=== PATIENT | female | born 1940 | race Caucasian/White ===

== ENCOUNTER 2018-07-12 00:07 | Inpatient (IN) | payer MEDICARE ==
[2018-07-12] MEDS ORDERED: Ondansetron PF 4 MG/2 ML Vial ONE (00:53)
[2018-07-12 01:51] LABS: Hemoglobin 10.4 g/dL (12.0-16.0); Mean Corpuscular HGB CONC 32.4 g/dL (32.0-36.0); Mean Corpuscular Hemoglobin 30.1 pg (27.0-31.0); Mean Corpuscular Volume 92.8 fL (78.0-98.0); Mean Platelet Volume 7.9 fL (7.4-10.4); Platelet Count 167 thou/uL (130-400); RBC Distribution Width 13.9 % (11.5-14.5); Red Blood Cell (RBC) Count 3.46 mill/uL (4.20-5.40)
[2018-07-12 01:57] LABS: Albumin 3.4 g/dL (3.4-4.8); Alkaline Phosphatase 80 U/L (40-150); Anion Gap 14 mmol/L (10-20); BUN (Urea Nitrogen) 24 mg/dL (9.8-20.1); Bilirubin, Total 0.9 mg/dL (0.2-1.2); Calc. Creatinine Clearance 0 mL/min (70-130); Calcium 8.4 mg/dL (7.8-10.44); Carbon Dioxide 22 mmol/L (23-31); Chloride 102 mmol/L (98-107); Estimated GFR-MDRD 41; Globulin 2.1 g/dL (2.4-3.5); Glucose 114 mg/dL (83-110); Potassium 3.8 mmol/L (3.5-5.1); Protein, Total 5.5 g/dL (6.0-8.3); Sodium 134 mmol/L (136-145)
[2018-07-12 01:58] LABS: ALT (SGPT) 34 U/L (8-55); AST (SGOT) 41 U/L (5-34); CK (CPK) 322 U/L (29-168)
[2018-07-12 02:14] LABS: Band 37 % (5-11); Eosinophils 1 % (0-10); Lymphocytes 11 % (21-51); MDiff Complete? YES; Metamyelocyte 4 % (0-0); Monocytes 3 % (0-10); Myelocyte 2 % (0-0); Neutrophil 42 % (42-75)
[2018-07-12 02:15] LABS: Bilirubin Negative (Negative); Blood, Urine Negative (Negative); Clarity CLOUDY (Clear); Glucose, Urine (Dipstick) Negative (Negative); Leukocyte Negative (Negative); Nitrite Negative (Negative); Protein, Urine (Dipstick) Trace mg/dL (Neg-Trace); Specific Gravity, Urine 1.011 (1.002-1.036); Urobilinogen 0.2 mg/dL (0.2-1.0)
[2018-07-12] MEDS ORDERED: Azithromycin 500 MG VIAL ONE (02:53)
[2018-07-12] MEDS ORDERED: cefTRIAXone\\ROCEPHIN 2 GM VIAL ONE (02:53)
[2018-07-12] MEDS ORDERED: Dextrose 5 % And 0.9 % NaCl 1,000 ML IV SCH (03:00)
--- NOTE | 2018-07-12 07:38 | RAD ---
Portable frontal chest radiograph: 07/12/2018 COMPARISON: None HISTORY: Pain FINDINGS: Lungs are clear. Heart and mediastinal contours appear within normal limits. IMPRESSION: No acute findings.
--- NOTE | 2018-07-12 07:51 | CT ---
PRELIMINARY REPORT/[facility]/EMERGENCY AFTER HOURS PROCEDURE: EXAM: CT Angiography Chest With Contrast EXAM DATE/TIME: 07/12/2018 2:23 AM CLINICAL HISTORY: 77 years old, female; Signs and symptoms; Shortness of breath; Patient HX: Er 1. Noprevious in pacs. . F77 presents to ED for multiple complaints. PT reports she has a bad back and reports she has been getting spasms down both legs. PT reports HX of similar spasms but reports these are worse. PT also reports she has been feeling off balance and reports falling off the bed yesterday. PT reports some nausea and reports vomiting last night and this morning. PT denies diarrhea and denies any urinary symptoms. Pt's family reports the leg spasms and balance issues have been occurring since PT got her pneumonia shot yesterday TECHNIQUE: Imaging protocol: Axial computed tomographic angiography images of the chest with intravenous contras t using CT angiography protocol. Coronal and sagittal reformatted images were created and reviewed. 3D rendering: MIP reconstructed images were created and reviewed. COMPARISON: No relevant prior studies available. FINDINGS: Pulmonary arteries: Adequate contrast enhancement of the pulmonary arteries. Aorta: No evidence of thoracic aortic dissection. Chronic atherosclerotic calcification of the vascul ature. Lungs: No evidence endobronchial lesion. Mild-moderate bilateral lower lobe air space opacitysuspect consolidation/pneumonia. Pleural space: No evidence of pneumothorax. Heart: Heart appears within normal limits, no pericardial effusion. No evidence of filling defects in the cardiac chambers. Mediastinum: Mild increased bilateral hilar soft tissue density. Few subcentimeter mediastinal lymph nodes. Sutures involving gastroesophageal junction. Lymph nodes: See Mediastinum Finding. Bones/joints: Musculoskeletal structures appear intact. Multi-level degenerative changes involve the thoracic spine. Soft tissues: Unremarkable. IMPRESSION: 1. No evidence of pulmonary embolism. 2. No evidence of thoracic aortic dissection. 3. Mild-moderate bilateral lower lobe air space opacity- suspect consolidation/pneumonia. 4. Minimal-mild mediastinal and perihilar lymphadenopathy. Thank you for allowing us to participate in the care of your patient. Dictated and Authenticated by: Anjel Baldwin MD 07/12/2018 3:30 AM Central Time ([place] & [place]) FINAL REPORT EMERGENCY AFTER HOURS CT ANGIOGRAM CHEST WITH 3D RENDERING: Date: 07/12/18 Time: 0226 hours FINDINGS/IMPRESSION: No convincing CT evidence for acute pulmonary embolism. No evidence for aortic aneurysm. Fairly exten sive bilateral lower lobe air space opacity disease with concern for pneumonia. Mild mediastinal and hilar lymphadenopathy, nonspecific. Report in agreement with preliminary report given on-call by [facility]. POS: ANDERSON
[2018-07-12 11:26] VITALS: BMI 28.0
[2018-07-12] MEDS ORDERED: ISOVUE-370 76%-LOCM 1 ML ONE (14:36)
[2018-07-12] MEDS ORDERED: Guaifenesin DM 100-10/5 ML UDCUP PO PRN (14:59)
[2018-07-12] MEDS ORDERED: Ondansetron PF 4 MG/2 ML Vial IVP PRN (14:59)
[2018-07-12] MEDS ORDERED: Benzonatate 100 MG CAP PO PRN (14:59)
[2018-07-12] MEDS ORDERED: hydrALAZINE 20 MG/ML VIAL SLOW IVP PRN (14:59)
[2018-07-12] MEDS ORDERED: Ondansetron ODT 4 MG TAB PO PRN (14:59)
[2018-07-12] MEDS: Pregabalin 75 MG CAP PO SCH ×2 (15:40→20:35)
[2018-07-12] MEDS: Sodium Chloride 0.9% 1,000 ML IV SCH (15:42)
[2018-07-12] MEDS: tiZANidine HCl 4 MG TAB PO SCH (20:37)
[2018-07-12] MEDS ORDERED: Famotidine 20 MG TAB PO SCH (21:00)
--- NOTE | 2018-07-12 21:46 | HP ---
PRIMARY CARE PROVIDER: Dr. Alex Sims. CHIEF COMPLAINT: Cough and shortness of breath. HISTORY OF PRESENT ILLNESS: This is a 77-year-old female, who presents to [facility] Emergency Department, complaining of increased back pain, shortness of breath, general malaise, and "feeling off balance." The patient apparently slid off the edge of her bed, but did not lose consciousness or sustain any type of head injury. The patient admits to nausea with episodes of emesis in the last 24 hours. The patient denied any change to her bowel habits or urinary complaints. The patient denied any specific change to her chronic medication regimen and states she has been compliant. The patient does admit to history of fibromyalgia, taking several muscle relaxants and Celebrex. The patient admits to dry cough with associated back pain. The patient denied any documented home fever or family members with similar symptoms. The patient denies any recent travel or sick contacts. The patient admits to secondhand smoke exposure by her on a limited basis. The patient does state she recently received pneumonia vaccination within the last 48 hours prior to this admission. The patient states her influenza vaccination is current as of this season. In the emergency room, the patient underwent general evaluation including chest imaging and CT angiogram of the chest showing infiltrates bilaterally concerning for early pneumonia. The patient received Zithromax and Rocephin intravenously as well as Zofran and normal saline. PAST MEDICAL HISTORY: 1. Fibromyalgia. 2. Chronic back pain. 3. Depression. PAST SURGICAL HISTORY: 1. Status post back surgery with fusion x7. 2. Status post appendectomy. 3. Status post gastric bypass. CURRENT MEDICATIONS: 1. Bupropion XL 300 mg p.o. daily. 2. Celebrex 200 mg p.o. daily. 3. Pepcid 40 mg p.o. daily. 4. Levothyroxine 50 mcg p.o. daily. 5. Lyrica 150 mg p.o. t.i.d. 6. Sertraline 100 mg p.o. q.i.d.. 7. Tizanidine 4 mg p.o. at bedtime. ALLERGIES: NO KNOWN DRUG ALLERGIES. FAMILY HISTORY: No inheritable disease per patient report. SOCIAL HISTORY: The patient is . Resides in [place], [place]. Originally from [place]. No current alcohol, tobacco, or illicit drug use. REVIEW OF SYSTEMS: CONSTITUTIONAL: Negative for weight loss or gain, ability to conduct usual activities. SKIN: Negative for rash, itching. EYES: Negative for double vision, pain. ENT/MOUTH: Negative for nose bleeding, neck stiffness, pain, tenderness. CARDIOVASCULAR: Negative for palpitations, dyspnea on exertion, orthopnea. RESPIRATORY: Negative for shortness of breath, wheezing, cough, hemoptysis, fever or night sweats. GASTROINTESTINAL: Negative for poor appetite, abdominal pain, heartburn, nausea, vomiting, constipation, or diarrhea. GENITOURINARY: Negative for urgency, frequency, dysuria, nocturia. MUSCULOSKELETAL: Negative for pain, swelling. NEUROLOGIC/PSYCHIATRIC: Negative for anxiety, depression. ALLERGY/IMMUNOLOGIC: Negative for skin rash, bleeding tendency. Otherwise negative except as stated per HPI. PHYSICAL EXAMINATION: VITAL SIGNS: On admission, blood pressure 93/41, pulse 66, respiratory rate 18, temperature 98 degrees Fahrenheit, and O2 saturation 88% on room air. GENERAL APPEARANCE: This is a 77-year-old female, alert and oriented x3, pleasant, conversant, in no acute distress. HEENT: Pupils are equal, round, and reactive to light and accommodation. Extraocular muscles are intact. No scleral icterus. No conjunctival injection. Nares are patent. OP is clear. Teeth in fair repair. NECK: Supple. No cervical adenopathy. No thyromegaly. No carotid bruits. No JVD appreciated. SPINE: Cervical spine full active and passive range of motion. No meningeal signs noted. CHEST: Diminished breath sounds in the bases bilaterally. No wheezing or rhonchi noted. CARDIOVASCULAR: S1 and S2 without noted murmur, rub, or gallop. ABDOMEN: Rounded, soft, nontender, and nondistended. Bowel sounds are positive in all 4 quadrants. There is no hepatosplenomegaly. No abdominal bruits. No rebound or guarding appreciated. EXTREMITIES: Warm and dry with fair turgor. No clubbing, cyanosis, or asymmetric edema appreciated. Pulses palpable distally at the dorsalis pedis, posterior tibial, and popliteal arteries bilaterally. Capillary refill less than 2 seconds. NEUROLOGIC: Cranial nerves 2 through 12 are grossly intact. No focal or lateralizing signs appreciated. PERTINENT LAB AND X-RAY FINDINGS: Sodium 134, potassium 3.8, chloride 102, CO2 of 22, BUN 24, creatinine 1.26, estimated GFR 41, glucose 114, lactic acid level 2.0, calcium 8.4, AST 41, ALT of 34, alkaline phosphatase 80, total CK 322. BNP 158. CBC showed a white blood cell count 11.0, hemoglobin 10.4, hematocrit 32.1, and platelet count 167 with 42% neutrophils and 37% bands. D-dimer 2.72. Urinalysis negative. Portable chest x-ray dated 07/12/2018, showed no acute cardiopulmonary process. CT angiogram of the chest dated 07/12/2018, showed no evidence for pulmonary embolus. No evidence of dissection. Bilateral lower lobe airspace opacity consistent with consolidation/pneumonia. EKG dated 07/12/2018, by my interpretation shows sinus mechanism with heart rates in the 70s. Normal R-wave progression noted in the precordial leads. Normal axis. No acute ST-T wave changes appreciated. ASSESSMENT AND PLAN: 1. Bilateral community-acquired pneumonia, suspected gram-positive cocci. The patient will be admitted to the medical floor. We will continue Rocephin 2 g IV q.24 hours with additional Zithromax 500 mg IV daily. General pulmonary supportive measures. Mucolytics p.r.n. Blood cultures x2 pending. 2. Acute hypoxic respiratory failure. Mild hypoxemia at the time of admission. We will continue oxygen supplementation at 2 L/minute by nasal cannula to maintain O2 saturations greater than or equal to 90%. Continue treatment as outlined in #1. 3. Generalized weakness. Suspect multifactorial and secondary to #1. Walking program evaluation in the a.m. General fall risk precautions. 4. Hypothyroidism. Continue levothyroxine 50 mcg p.o. daily. 5. Chronic back pain. Stable currently. Resume home regimen to include Celebrex, Lyrica, sertraline, and tizanidine. 6. Prophylaxis. SCDs while in bed. Pepcid 20 mg p.o. b.i.d.. CODE STATUS: Full. Surrogate medical decision maker is the patient's spouse. Job ID: [id number]
[2018-07-13] MEDS: cefTRIAXone\\ROCEPHIN 2 GM in Sodium Chloride 0.9% 100 ML IVPB SCH (02:45)
[2018-07-13] MEDS: Azithromycin 500 MG in Sodium Chloride 0.9% 250 ML 250 ML IVPB SCH (04:15)
[2018-07-13] MEDS: Sodium Chloride 0.9% 1,000 ML IV SCH ×2 (04:25→17:12)
[2018-07-13 06:05] LABS: Band 13 % (5-11); Hemoglobin 10.2 g/dL (12.0-16.0); Lymphocytes 18 % (21-51); MDiff Complete? YES; Mean Corpuscular HGB CONC 33.1 g/dL (32.0-36.0); Mean Corpuscular Hemoglobin 30.4 pg (27.0-31.0); Mean Corpuscular Volume 91.8 fL (78.0-98.0); Mean Platelet Volume 8.2 fL (7.4-10.4); Monocytes 6 % (0-10); Neutrophil 63 % (42-75); Platelet Count 164 thou/uL (130-400); RBC Distribution Width 13.8 % (11.5-14.5); Red Blood Cell (RBC) Count 3.34 mill/uL (4.20-5.40); White Blood Cell (WBC) Count 11.2 thou/uL (4.8-10.8)
[2018-07-13 06:15] LABS: Anion Gap 12 mmol/L (10-20); BUN (Urea Nitrogen) 14 mg/dL (9.8-20.1); Calc. Creatinine Clearance 74 mL/min (70-130); Calcium 8.3 mg/dL (7.8-10.44); Carbon Dioxide 20 mmol/L (23-31); Chloride 110 mmol/L (98-107); Estimated GFR-MDRD 69; Glucose 90 mg/dL (83-110); Potassium 3.9 mmol/L (3.5-5.1); Sodium 138 mmol/L (136-145)
[2018-07-13] MEDS: CeleCOXIB 100 MG CAP PO SCH (08:10)
[2018-07-13] MEDS: Pregabalin 75 MG CAP PO SCH ×3 (08:10→19:53)
[2018-07-13] MEDS: Bupropion 150 MG XL TAB PO SCH (08:10)
[2018-07-13] MEDS: Famotidine 20 MG TAB PO SCH (08:12)
[2018-07-13] MEDS: Levothyroxine Sodium 50 MCG TAB PO SCH (08:12)
--- NOTE | 2018-07-13 13:53 | PDOC.PN ---
- Subjective Encounter Start Date: 07/13/18 Encounter Start Time: 13:50 Subjective: f/u for bilat PNA on Rocephin/Zithromax and room air. Feeling better -: overall. Dry cough, no fever. Appetite good. - Objective Resuscitation Status - Order Detail: 07/12/18 14:54 Resuscitation Status Routine Resuscitation Status: FULL: Full Resuscitation MAR Reviewed: Yes Vital Signs & Weight: Vital Signs (12 hours) Temp Pulse Resp BP Pulse Ox 07/13/18 11:27 98.4 F 60 16 101/57 L 97 07/13/18 08:17 98.3 F 76 18 114/69 95 07/13/18 08:00 95 07/13/18 04:46 98.3 F 70 18 125/61 91 L Weight Weight 179 lb 3.773 oz I&O: 07/12/18 07/13/18 07/14/18 06:59 06:59 06:59 Output Total 2 Balance -2 Result Diagrams: 07/13/18 05:11 07/13/18 05:11 Additional Labs: Microbiology 07/12/18 01:26 Venous blood - Right Hand Blood Culture - Preliminary Specimen has been received and culture in progress. No Growth to date. 07/12/18 01:17 Venous blood - Left Arm Blood Culture - Preliminary Specimen has been received and culture in progress. No Growth to date. Laboratory Tests 07/12/18 07/12/18 07/13/18 01:17 01:17 05:11 WBC 11.0 H Hgb 10.4 L Band Neuts % (Manual) 37 H 13 H Sodium 134 L Creatinine 1.26 H Phys Exam - Physical Examination Constitutional: NAD HEENT: PERRLA, sclera anicteric, oral pharynx no lesions Neck: no nodes, no JVD, supple, full ROM Respiratory: no wheezing, no rales, no rhonchi, clear to auscultation bilateral S1, S2 Cardiovascular: RRR, no significant murmur, no rub, gallop Gastrointestinal: soft, non-tender, no distention, positive bowel sounds Musculoskeletal: no edema, pulses present Neurological: normal sensation, moves all 4 limbs Psychiatric: A&O x 3 Skin: normal turgor, cap refill <2 seconds Dx/Plan (1) Bacterial pneumonia Code(s): J15.9 - UNSPECIFIED BACTERIAL PNEUMONIA Status: Acute Comment: Continue Rocephin/Zithromax, initial blood cx negative (2) Acute respiratory failure with hypoxia Code(s): J96.01 - ACUTE RESPIRATORY FAILURE WITH HYPOXIA Status: Acute Comment: Improved, wean off O2 support (3) MALIKA (acute kidney injury) Code(s): N17.9 - ACUTE KIDNEY FAILURE, UNSPECIFIED Status: Acute Comment: Improved with IVF's, avoid nephrotoxic meds and limit contrast exposure, serial monitoring (4) Generalized weakness Code(s): R53.1 - WEAKNESS Status: Acute Comment: Walking program for mobilization and ambulation, likely multifactorial (5) Hypothyroidism Code(s): E03.9 - HYPOTHYROIDISM, UNSPECIFIED Status: Chronic Comment: Continue Levothyroxine 50mcg daily - Plan continue antibiotics, social sciences professor, respiratory therapy, out of bed/ambulate , DVT proph w/SCDs Stable currently -: Continue Rocephin/Zithromax IV another 24h then de-escalate -: Wean off O2 support -: OOB/ambulate -: AM lab: CBC * Likely home in 24h
[2018-07-13] MEDS: tiZANidine HCl 4 MG TAB PO SCH (19:53)
[2018-07-14] MEDS: cefTRIAXone\\ROCEPHIN 2 GM in Sodium Chloride 0.9% 100 ML IVPB SCH (02:22)
[2018-07-14] MEDS: Azithromycin 500 MG in Sodium Chloride 0.9% 250 ML 250 ML IVPB SCH (02:24)
[2018-07-14] MEDS: Levothyroxine Sodium 50 MCG TAB PO SCH (05:25)
[2018-07-14 07:05] LABS: Hemoglobin 10.1 g/dL (12.0-16.0); Mean Corpuscular HGB CONC 33.5 g/dL (32.0-36.0); Mean Corpuscular Hemoglobin 30.6 pg (27.0-31.0); Mean Corpuscular Volume 91.2 fL (78.0-98.0); Mean Platelet Volume 7.7 fL (7.4-10.4); Platelet Count 180 thou/uL (130-400); RBC Distribution Width 13.5 % (11.5-14.5); Red Blood Cell (RBC) Count 3.29 mill/uL (4.20-5.40); White Blood Cell (WBC) Count 10.4 thou/uL (4.8-10.8)
[2018-07-14 08:03] LABS: Band 19 % (5-11); Eosinophils 3 % (0-10); Lymphocytes 9 % (21-51); MDiff Complete? YES; Monocytes 5 % (0-10); Neutrophil 64 % (42-75); Platelet Morphology Comment Appears Adequate; Polychromasia SLIGHT = 2-3 cells (100X) (0-2/hpf)
[2018-07-14] MEDS: Sodium Chloride 0.9% 1,000 ML IV SCH ×2 (08:25→20:51)
[2018-07-14] MEDS: CeleCOXIB 100 MG CAP PO SCH (08:25)
[2018-07-14] MEDS: Pregabalin 75 MG CAP PO SCH ×3 (08:25→20:52)
[2018-07-14] MEDS: Acetaminophen 500 MG TAB PO PRN (08:28)
[2018-07-14] MEDS: Bupropion 150 MG XL TAB PO SCH (08:29)
[2018-07-14] MEDS: Famotidine 20 MG TAB PO SCH (08:30)
--- NOTE | 2018-07-14 16:31 | PDOC.PN ---
- Subjective Encounter Start Date: 07/14/18 Encounter Start Time: 11:45 Subjective: had coughing spells last night, feels better now -: no sob, tolerating oral diet - Objective Resuscitation Status - Order Detail: 07/12/18 14:54 Resuscitation Status Routine Resuscitation Status: FULL: Full Resuscitation MAR Reviewed: Yes Vital Signs & Weight: Vital Signs (12 hours) Temp Pulse Resp BP Pulse Ox 07/14/18 08:00 93 L 07/14/18 07:27 100.1 F H 79 18 110/63 93 L Weight Weight 179 lb 3.773 oz I&O: 07/13/18 07/14/18 07/15/18 06:59 06:59 06:59 Output Total 2 Balance -2 Result Diagrams: 07/14/18 06:39 07/13/18 05:11 Phys Exam - Physical Examination HEENT: PERRLA, moist MMs Neck: no JVD, supple Respiratory: no wheezing, no rales Cardiovascular: RRR, no significant murmur Gastrointestinal: soft, non-tender, positive bowel sounds Musculoskeletal: no edema, pulses present Neurological: non-focal, moves all 4 limbs Dx/Plan (1) Bacterial pneumonia Code(s): J15.9 - UNSPECIFIED BACTERIAL PNEUMONIA Status: Acute Comment: Continue Rocephin/Zithromax, blood cx negative (2) MALIKA (acute kidney injury) Code(s): N17.9 - ACUTE KIDNEY FAILURE, UNSPECIFIED Status: Resolved Comment : Improved with IVF's, avoid nephrotoxic meds and limit contrast exposure, serial monitoring (3) Acute respiratory failure with hypoxia Code(s): J96.01 - ACUTE RESPIRATORY FAILURE WITH HYPOXIA Status: Acute Comment: Improved, wean off O2 support (4) Hypothyroidism Code(s): E03.9 - HYPOTHYROIDISM, UNSPECIFIED Status: Chronic Qualifiers: Hypothyroidism type: unspecified Qualified Code(s): E03.9 - Hypothyroidism , unspecified Comment: Continue Levothyroxine 50mcg daily - Plan hemostable, bandemia has come down to 18% from 37% -: continue antibiotics -: likely dc plan in am if stable -: encourage po intake, mobilize as tolerated -: on wellbutrin xl, lyrica high dose tid, zanaflex * . Review of Systems - Medications/Allergies Allergies/Adverse Reactions: Allergies Allergy/AdvReac Type Severity Reaction Status Date / Time No Known Drug Allergies Allergy Verified 07/12/18 14:41 Medications: Current Medications Acetaminophen (Tylenol) 1,000 mg PO Q6H PRN PRN Reason: Mild Pain (1-3) Last Admin: 07/14/18 08:28 Dose: 1,000 mg Benzonatate (Tessalon) 100 mg PO Q6H PRN PRN Reason: Cough Last Admin: 07/13/18 22:36 Dose: 100 mg Bupropion HCl (Wellbutrin Xl) 300 mg PO DAILY [facility] Last Admin: 07/14/18 08:29 Dose: 300 mg Celecoxib (Celebrex) 200 mg PO DAILY [facility] Last Admin: 07/14/18 08:25 Dose: 200 mg Famotidine (Pepcid) 40 mg PO DAILY [facility] Last Admin: 07/14/18 08:30 Dose: 40 mg Guaifenesin/Dextromethorphan (Robitussin Dm) 15 ml PO Q4H PRN PRN Reason: Cough Hydralazine HCl (Apresoline) 10 mg SLOW IVP Q4H PRN PRN Reason: SBP > 180 and HR < 70 Azithromycin 500 mg/ Sodium (Chloride) 250 mls @ 250 mls/hr IVPB Q24HR@0400 [facility] Last Admin: 07/14/18 02:24 Dose: 250 mls Ceftriaxone Sodium 2 gm/ (Sodium Chloride) 100 mls @ 200 mls/hr IVPB Q24HR@ 0300 [facility] Last Admin: 07/14/18 02:22 Dose: 100 mls Sodium Chloride (Normal Saline 0.9%) 1,000 mls @ 75 mls/hr IV .[id number] [facility] Last Admin: 07/14/18 08:25 Dose: 1,000 mls Levothyroxine Sodium (Synthroid) 50 mcg PO 0600 [facility] Last Admin: 07/14/18 05:25 Dose: 50 mcg Ondansetron HCl (Zofran Odt) 4 mg PO Q6H PRN PRN Reason: Nausea/Vomiting Ondansetron HCl (Zofran) 4 mg IVP Q6H PRN PRN Reason: Nausea/Vomiting Pregabalin (Lyrica) 150 mg PO TID [facility] Last Admin: 07/14/18 14:13 Dose: 150 mg Sertraline HCl (Zoloft) 100 mg PO QID [facility] Tizanidine HCl (Zanaflex) 4 mg PO QPM [facility] Last Admin: 07/13/18 19:53 Dose: 4 mg
[2018-07-14] MEDS: tiZANidine HCl 4 MG TAB PO SCH (20:52)
[2018-07-15] MEDS: cefTRIAXone\\ROCEPHIN 2 GM in Sodium Chloride 0.9% 100 ML IVPB SCH (02:27)
[2018-07-15] MEDS: Azithromycin 500 MG in Sodium Chloride 0.9% 250 ML 250 ML IVPB SCH (04:02)
[2018-07-15] MEDS: Acetaminophen 500 MG TAB PO PRN ×2 (04:14→21:47)
[2018-07-15] MEDS: Levothyroxine Sodium 50 MCG TAB PO SCH (04:14)
[2018-07-15] MEDS: CeleCOXIB 100 MG CAP PO SCH (07:46)
[2018-07-15] MEDS: Bupropion 150 MG XL TAB PO SCH (07:46)
[2018-07-15] MEDS: Famotidine 20 MG TAB PO SCH (07:46)
[2018-07-15] MEDS: Pregabalin 75 MG CAP PO SCH ×3 (07:47→21:47)
[2018-07-15] MEDS: Sodium Chloride 0.9% 1,000 ML IV SCH (07:50)
--- NOTE | 2018-07-15 14:57 | PDOC.PN ---
- Subjective Encounter Start Date: 07/15/18 Encounter Start Time: 07:45 Subjective: breathing better, feels better -: eating well, has ambulated a bit - Objective Resuscitation Status - Order Detail: 07/12/18 14:54 Resuscitation Status Routine Resuscitation Status: FULL: Full Resuscitation MAR Reviewed: Yes Vital Signs & Weight: Vital Signs (12 hours) Temp Pulse Resp BP Pulse Ox 07/15/18 11:00 98 F 66 18 126/68 94 L 07/15/18 07:00 98.2 F 66 17 136/66 94 L Weight Weight 179 lb 3.773 oz Result Diagrams: 07/14/18 06:39 07/13/18 05:11 Phys Exam - Physical Examination HEENT: PERRLA, moist MMs Neck: no JVD, supple Respiratory: no rales, no rhonchi Cardiovascular: RRR, no significant murmur Gastrointestinal: soft, non-tender, positive bowel sounds Musculoskeletal: no edema, pulses present Neurological: non-focal, moves all 4 limbs Psychiatric: normal affect, A&O x 3 Dx/Plan (1) Bacterial pneumonia Code(s): J15.9 - UNSPECIFIED BACTERIAL PNEUMONIA Status: Acute Comment: Continue Rocephin/Zithromax, blood cx negative (2) MALIKA (acute kidney injury) Code(s): N17.9 - ACUTE KIDNEY FAILURE, UNSPECIFIED Status: Resolved Comment : Improved with IVF's, avoid nephrotoxic meds and limit contrast exposure, serial monitoring (3) Acute respiratory failure with hypoxia Code(s): J96.01 - ACUTE RESPIRATORY FAILURE WITH HYPOXIA Status: Acute Comment: Improved, wean off O2 support (4) Hypothyroidism Code(s): E03.9 - HYPOTHYROIDISM, UNSPECIFIED Status: Chronic Qualifiers: Hypothyroidism type: unspecified Qualified Code(s): E03.9 - Hypothyroidism , unspecified Comment: Continue Levothyroxine 50mcg daily - Plan hemostable -: dc plan in am -: continue synthroid, lyrica, welbutrin -: dc iv fluids -: will switch to omnicef on discharge in am x 5 days * . Review of Systems - Medications/Allergies Allergies/Adverse Reactions: Allergies Allergy/AdvReac Type Severity Reaction Status Date / Time No Known Drug Allergies Allergy Verified 07/12/18 14:41 Medications: Current Medications Acetaminophen (Tylenol) 1,000 mg PO Q6H PRN PRN Reason: Mild Pain (1-3) Last Admin: 07/15/18 04:14 Dose: 1,000 mg Benzonatate (Tessalon) 100 mg PO Q6H PRN PRN Reason: Cough Last Admin: 07/13/18 22:36 Dose: 100 mg Bupropion HCl (Wellbutrin Xl) 300 mg PO DAILY [facility] Last Admin: 07/15/18 07:46 Dose: 300 mg Celecoxib (Celebrex) 200 mg PO DAILY [facility] Last Admin: 07/15/18 07:46 Dose: 200 mg Famotidine (Pepcid) 40 mg PO DAILY [facility] Last Admin: 07/15/18 07:46 Dose: 40 mg Guaifenesin/Dextromethorphan (Robitussin Dm) 15 ml PO Q4H PRN PRN Reason: Cough Hydralazine HCl (Apresoline) 10 mg SLOW IVP Q4H PRN PRN Reason: SBP > 180 and HR < 70 Azithromycin 500 mg/ Sodium (Chloride) 250 mls @ 250 mls/hr IVPB Q24HR@0400 [facility] Last Admin: 07/15/18 04:02 Dose: 250 mls Ceftriaxone Sodium 2 gm/ (Sodium Chloride) 100 mls @ 200 mls/hr IVPB Q24HR@ 0300 [facility] Last Admin: 07/15/18 02:27 Dose: 100 mls Sodium Chloride (Normal Saline 0.9%) 1,000 mls @ 75 mls/hr IV .[id number] [facility] Last Admin: 07/15/18 07:50 Dose: Not Given Levothyroxine Sodium (Synthroid) 50 mcg PO 0600 [facility] Last Admin: 07/15/18 04:14 Dose: 50 mcg Ondansetron HCl (Zofran Odt) 4 mg PO Q6H PRN PRN Reason: Nausea/Vomiting Ondansetron HCl (Zofran) 4 mg IVP Q6H PRN PRN Reason: Nausea/Vomiting Pregabalin (Lyrica) 150 mg PO TID [facility] Last Admin: 07/15/18 14:35 Dose: 150 mg Sertraline HCl (Zoloft) 100 mg PO DAILY [facility] Tizanidine HCl (Zanaflex) 4 mg PO QPM [facility] Last Admin: 07/14/18 20:52 Dose: 4 mg
[2018-07-15] MEDS ORDERED: Cepastat Lozenges 1 LOZ PO PRN (20:58)
[2018-07-15] MEDS: tiZANidine HCl 4 MG TAB PO SCH (21:47)
[2018-07-16] MEDS: cefTRIAXone\\ROCEPHIN 2 GM in Sodium Chloride 0.9% 100 ML IVPB SCH (03:25)
[2018-07-16] MEDS: Azithromycin 500 MG in Sodium Chloride 0.9% 250 ML 250 ML IVPB SCH (03:25)
[2018-07-16] MEDS: Sodium Chloride 0.9% 1,000 ML IV SCH (03:29)
[2018-07-16] MEDS: Levothyroxine Sodium 50 MCG TAB PO SCH (04:50)
[2018-07-16] MEDS: Bupropion 150 MG XL TAB PO SCH (08:40)
[2018-07-16] MEDS: CeleCOXIB 100 MG CAP PO SCH (08:40)
[2018-07-16] MEDS: Famotidine 20 MG TAB PO SCH (08:42)
[2018-07-16] MEDS: Pregabalin 75 MG CAP PO SCH (08:42)
[2018-07-16 11:57] VITALS: BP 149/77; TEMP 98.4
--- NOTE | 2018-07-16 12:39 | PDOC.PN ---
- Subjective Encounter Start Date: 07/16/18 Encounter Start Time: 08:15 Subjective: no sob, feels better -: is amb in hallway - Objective Resuscitation Status - Order Detail: 07/12/18 14:54 Resuscitation Status Routine Resuscitation Status: FULL: Full Resuscitation MAR Reviewed: Yes Vital Signs & Weight: Vital Signs (12 hours) Temp Pulse Resp BP BP Pulse Ox 07/16/18 11:56 98.4 F 73 18 149/77 H 94 L 07/16/18 08:42 96 07/16/18 07:42 99.0 F 73 18 146/80 H 96 07/16/18 03:15 98.0 F Weight Weight 179 lb 3.773 oz I&O: 07/15/18 07/16/18 07/17/18 06:59 06:59 06:59 Intake Total 1805 Balance 1805 Result Diagrams: 07/14/18 06:39 07/13/18 05:11 Phys Exam - Physical Examination HEENT: PERRLA, moist MMs Neck: no JVD, supple Respiratory: no wheezing, no rales Cardiovascular: RRR, no significant murmur Gastrointestinal: soft, non-tender, positive bowel sounds Musculoskeletal: no edema, pulses present Neurological: non-focal, moves all 4 limbs Psychiatric: normal affect, A&O x 3 Dx/Plan (1) Bacterial pneumonia Code(s): J15.9 - UNSPECIFIED BACTERIAL PNEUMONIA Status: Acute (2) MALIKA (acute kidney injury) Code(s): N17.9 - ACUTE KIDNEY FAILURE, UNSPECIFIED Status: Resolved Comment : Improved with IVF's, avoid nephrotoxic meds and limit contrast exposure, serial monitoring (3) Acute respiratory failure with hypoxia Code(s): J96.01 - ACUTE RESPIRATORY FAILURE WITH HYPOXIA Status: Resolved (4) Hypothyroidism Code(s): E03.9 - HYPOTHYROIDISM, UNSPECIFIED Status: Chronic Qualifiers: Hypothyroidism type: unspecified Qualified Code(s): E03.9 - Hypothyroidism , unspecified Comment: Continue Levothyroxine 50mcg daily - Plan hemostable -: omnicef for 5 days -: to f/u with PCP in 1 week -: dc pt home * .
--- NOTE | 2018-07-17 15:22 | DIS ---
DATE OF ADMISSION: 07/12/2018 DATE OF DISCHARGE: 07/16/2018 DISCHARGE DISPOSITION: To home. PRIMARY DISCHARGE DIAGNOSES: 1. Pneumonia, resolving. 2. Acute kidney injury, resolved. 3. Acute respiratory failure with hypoxia, resolved. 4. Hypothyroidism. PROCEDURES DONE DURING HOSPITALIZATION: CT angio chest done showed no evidence of PE. There was no dissection in the thoracic aorta. Bilateral lower lobe airspace opacities suspicious for consolidation/pneumonia. Blood cultures x2, no growth. Respiratory virus panel PCR was negative. Discharge white count of 10, H and H of 10 and 30, platelet count 180. BUN and creatinine was 14 and 0.8 on the 2nd. DISCHARGE MEDICATIONS: 1. Omnicef 300 mg p.o. twice daily for another 5 days. 2. Albuterol inhaler q.6 hourly p.r.n. 3. Tizanidine 4 mg p.o. q.p.m. 4. Sertraline 100 mg p.o. daily. 5. Lyrica 150 mg p.o. three times daily. 6. Levothyroxine 50 mcg p.o. daily. 7. Pepcid 40 mg daily. 8. Celecoxib 200 mg daily. 9. Bupropion extended release 300 mg p.o. daily. ALLERGIES: NO KNOWN DRUG ALLERGIES. DISCHARGE PLAN: The patient to follow up with primary care physician in 1 week. BRIEF COURSE DURING HOSPITALIZATION: The patient initially came to ER with complaints of cough and shortness of breath. She had generalized weakness as well. Initial workup revealed bilateral pneumonia. The patient was placed on Rocephin and Zithromax. She was initially needing oxygen on admission, which has been weaned off at the time of discharge. She is ambulating well prior to discharge. The patient is back to her baseline. She has remained hemodynamically stable and will be shortly discharged home. Sin Fine has been advised to continue Omnicef for another 5 days. If the patient were to develop fever or any untoward event, she has been advised to come to the emergency room immediately. Please see a [id number] documentation for the day of discharge on [facility]. Job ID: [id number] [id number]
== END 2018-07-16 12:27 | disposition home or self-care (01) | DRG 193 ==
LOC: ERS 00:07 → ERHOLD 02:53 → T4-A 14:17
PROVIDERS: ADMIT Hospitalist; ATTEND Hospitalist
DX: J15.9 Unspecified bacterial pneumonia (principal); J96.01 Acute respiratory failure with hypoxia; N17.9 Acute kidney failure, unspecified; G89.29 Other chronic pain; M54.9 Dorsalgia, unspecified; E03.9 Hypothyroidism, unspecified; M79.7 Fibromyalgia; F32.9 Major depressive disorder, single episode, unspecified; Z98.1 Arthrodesis status; Z90.49 Acquired absence of other specified parts of digestive tract; Z98.84 Bariatric surgery status; Z79.899 Other long term (current) drug therapy
CPT/HCPCS: 36415; 51701; 71045; 71275; 80048; 80053; 81003; 82550; 83605; 83880; 84484; 85007; 85025; 85027; 85379; 87040; 87633; 93005; 96361; 96365; 96367; 96375; A4353; J0456; J0696; J2405; J3490; J7050; Q9966

== ENCOUNTER 2018-10-24 15:15 | Outpatient (CLI) | payer MEDICARE ==
--- NOTE | 2018-11-21 17:14 | MMO ---
Bilateral MAMMO Bilat Screen [facility]. CLINICAL HISTORY: Patient is 78 years old and is seen for screening. The patient has the following family history of breast cancer: mother, at age 93. The patient has no personal history of cancer. VIEWS: The views performed were: bilateral craniocaudal with tomosynthesis; bilateral mediolateral oblique with tomosynthesis; and cleavage view. MAMMOGRAM FINDINGS: There are scattered fibroglandular densities. There are benign appearing calcifications seen in both breasts. There are no suspicious masses, suspicious calcifications, or new areas of architectural distortion. IMPRESSION: THERE IS NO MAMMOGRAPHIC EVIDENCE OF MALIGNANCY. A ROUTINE FOLLOW-UP MAMMOGRAM IN 1 YEAR IS RECOMMENDED. THE RESULTS OF THIS EXAM WERE SENT TO THE PATIENT. ACR BI-RADS Category 2 - Benign finding MAMMOGRAPHY NOTE: 1. A negative mammogram report should not delay a biopsy if a dominant of clinically suspicious mass is present. 2. Approximately 10% to 15% of breast cancers are not detected by mammography. 3. Adenosis and dense breasts may obscure an underlying neoplasm. Reported by: CONNOR KANG MD Electonically Signed: [id number]
== END 2018-10-24 15:16 | disposition home or self-care (01) ==
LOC: BICMAMMO 15:15
PROVIDERS: ATTEND Physician Assistant
DX: Z12.31 Encounter for screening mammogram for malignant neoplasm of breast (principal); Z80.3 Family history of malignant neoplasm of breast
CPT/HCPCS: 77063; 77067

== ENCOUNTER 2019-10-05 09:09 | Outpatient (CLI) | payer MEDICARE ==
--- NOTE | 2019-10-05 10:29 | MRI ---
MRI LUMBAR SPINE NONCONTRAST: HISTORY: Lumbago. Left-sided sciatica. Low back pain. Numbness and tingling in the left leg. COMPARISON: 03/10/2006. FINDINGS: Stable straightening of lumbar lordosis. Appropriate T1 marrow signal intensity of the lumbar vertebr ae. No fracture. There are type I and type II Modic changes at T12-L1 and L3-L4. Type II Modic changes at L2-L3 and L4-L5. Appropriate signal intensity of the paraspinal muscles and solid organs. Overall AP diameter of the central spinal canal is narrowed secondary to congenitally foreshortened p edicles. There is evidence of clumping as well as peripheral displacement of the nerve root suggesting chronic arachnoiditis. Spondylolisthesis: L1-L2: 5.1 mm of anterolisthesis. L2-L3: 3.1 mm of anterolisthesis. T12-L1:Desiccation with moderate to severe loss of disc space height. Broad-based disc bulge and post erior element hypertrophy result in moderate to severe central canal stenosis. Severe bilateral neural foraminal narrowing. L1-L2:Desiccation with moderate loss of disc space height. Posterior laminectomy defect. Moderate anayeli tral canal stenosis. Moderate bilateral neural foraminal narrowing. L2-L3:Desiccation with moderate loss of disc space height. Posterior laminectomy defect. Broad-based disc bulge. Moderate central canal stenosis. Mild to moderate right and mild left neural foraminal narrowing. L3-L4:Desiccation with mild to moderate loss of disc space height. Broad-based disc bulge with superi or disc extrusion. There is ligamentum flavum thickening and facet hypertrophy. Fluid in both facet joints. Severe central canal stenosis. The degree of central canal stenosis has progressed. L4-L5:Desiccation with moderate loss of disc space height. Broad-based disc bulge abuts the thecal sa c. There is evidence of previous surgical change along the posterior left aspect of the disc, near the subarticular zone. There is a T1 hypointense, T2 hyperintense focus along the right aspect of the central spinal canal, similar to the previous examination. There appear to be traversing left L5 nerve root extending through the T2 hyperintense focus. There is enhancing scar tissue along the medi al and lateral aspect. Lesion may represent a type II spinal meningeal cyst either congenital or iatrogenic in origin. Lesion measures 1.2 x 0.6 cm. There does appear to be some mild mass effect upo n the left aspect of the thecal sac. Overall mild central canal stenosis. Bilaterally, neural foramina are patent. L5-S1:Mild loss of disc space height. Posterior laminectomy defect. Broad-based disc bulge. No signif icant central canal stenosis or significant neural foraminal narrowing. IMPRESSION: 1. Stable narrowing of the central spinal canal due to degenerative change as well as congenitally fo reshortened pedicles. 2. Severe central canal stenosis at L3-L4. 3. Stable postoperative changes. 4. Abnormal T2 hyperintensity along the traversing left L5 with nerve root, at the L4-L5 level. 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 Etiology may be congenital or iatrogenic. Lungs are similar to previous MRI. Consider neurosurgical consultation. 5. Evidence of chronic arachnoiditis. CODE T Transcribed Date/Time: 10/05/2019 10:50 AM
== END 2019-10-05 09:10 | disposition home or self-care (01) ==
LOC: BICMRI 09:09
PROVIDERS: ATTEND Physician Assistant
DX: M54.42 Lumbago with sciatica, left side (principal); G89.29 Other chronic pain; M48.061 Spinal stenosis, lumbar region without neurogenic claudication; G03.1 Chronic meningitis; Z98.890 Other specified postprocedural states
CPT/HCPCS: 72148

== ENCOUNTER 2019-12-17 07:52 | Outpatient (CLI) | payer MEDICARE, OTHER ==
[2019-12-18 15:28] LABS: SARS-CoV-2 MS2 Positive; SARS-CoV-2 N Gene Negative; SARS-CoV-2 S Gene Negative; SARS-CoV-2 by NAA Not Detected (NotDetected); SARS-CoV-2 orf1ab Negative
== END 2019-12-17 07:53 | disposition home or self-care (01) ==
LOC: LABBT 07:52
PROVIDERS: ATTEND Neurological Surgery
DX: M48.061 Spinal stenosis, lumbar region without neurogenic claudication (principal); Z20.828 Contact with and (suspected) exposure to other viral communicable diseases
CPT/HCPCS: 87635; U0003

== ENCOUNTER 2019-12-21 05:29 | Day surgery (SDC) | payer MEDICARE ==
[2019-12-18 10:11] VITALS: BMI 28.1
--- NOTE | 2019-12-20 12:39 | HP ---
HISTORY OF PRESENT ILLNESS: Ms. Eagle is a pleasant 79-year-old woman who presents to our clinic with symptoms of neurogenic claudication in the setting of severe lumbar stenosis at L3-4. She does have roughly 6 to 7 prior lumbar procedures, all of which appear to be below her current area of stenosis. She has attempted treatment in the past conservatively and has failed, hopes to discuss possible surgical intervention at this time. PAST MEDICAL HISTORY: Significant for depression, chronic pain syndrome, anxiety, arthritis, thyroid disease. PAST SURGICAL HISTORY: Lumbar decompression x7, hysterectomy, appendectomy, bilateral cataracts, gastric bypass. CURRENT MEDICATIONS: 1. Levothyroxine. 2. Lyrica. 3. Oxycodone. 4. Sertraline. 5. Bupropion. 6. Tizanidine. ALLERGIES: NO KNOWN DRUG ALLERGIES. PHYSICAL EXAMINATION: Exam is deferred for COVID telehealth visit. ASSESSMENT: Lumbar spinal stenosis with neurogenic claudication. PLAN: Dr. Card met with the patient, reviewed imaging and advocated for L3-L4 decompression. He explained to the patient risks, benefits, and alternatives to the procedure. The patient expressed understanding and elected to move forward with surgery as discussed. I do believe the patient is mentally competent and capable of making medical decisions for herself. We will move forward with surgery as planned. Job ID: [id number]
[2019-12-21] MEDS ORDERED: Fentanyl 100 MCG/2 ML VIAL ONE ×4 (06:28→10:38)
[2019-12-21] MEDS ORDERED: Bupivacaine PF 0.5% 30 ML VIAL ONE (06:39)
[2019-12-21] MEDS ORDERED: Thrombin 5000 UNITS/5 ML VIAL ONE (06:39)
[2019-12-21] MEDS ORDERED: Bupivacaine/Epinephrine 0.25% 30 ML VIAL ONE (06:40)
[2019-12-21] MEDS ORDERED: Bupivacaine HCl 0.5%/Epinephrine 1:200,000/PF 30 ml Vial ONE (06:41)
[2019-12-21] MEDS ORDERED: Famotidine/PF 20 mg/2ml Vial ONE (06:50)
[2019-12-21] MEDS ORDERED: Morphine 2 MG/ML VIAL ONE (09:38)
--- NOTE | 2019-12-21 10:13 | OP ---
DATE OF PROCEDURE: 12/21/2019 FLOODPLAIN MANAGER: None. INDICATION: Pain. DIAGNOSIS: Severe lumbar stenosis. PROCEDURE PERFORMED: Reoperation of L3-L4 decompression. ANESTHESIA: General. DESCRIPTION OF PROCEDURE: The patient was brought into the operating room and placed under general anesthesia. She was flipped from the supine to prone position on the operating room table. A linear incision was planned over the L3-L4 segment. After prepping and draping and after an appropriate operative pause, the incision was created. The soft tissues were swept away from midline. A self-retaining retractor was placed. The C-arm images were then obtained to confirm the appropriate level. 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 After completing the decompression, the wound was irrigated. Hemostasis was maintained throughout. The wound was then closed in anatomic layers, and a pressure dressing was applied. There were no known procedural complications. Job ID: [id number]
[2019-12-21] MEDS ORDERED: Lidocaine 1% PF 5 ML VIAL ONE (10:18)
[2019-12-21] MEDS ORDERED: Rocuronium Bromide 10 MG/ML (10ML VIAL) ONE (10:18)
[2019-12-21] MEDS ORDERED: Glycopyrrolate 0.2 MG/ML 5 ML SYRINGE ONE (10:18)
[2019-12-21] MEDS ORDERED: Ondansetron PF 4 MG/2 ML Vial ONE (10:18)
[2019-12-21] MEDS ORDERED: EPHEDRINE 25 MG/5 ML SYRINGE ONE (10:18)
[2019-12-21] MEDS ORDERED: PROPOFOL 200 MG/20 ML VIAL ONE (10:18)
[2019-12-21] MEDS ORDERED: HYDROcodone/Acetaminophen 5/325 mg Tablet ONE (14:28)
== END 2019-12-21 14:45 | disposition home or self-care (01) ==
LOC: SDC 05:29
PROVIDERS: ATTEND Neurological Surgery
PROC: 01NB0ZZ Release Lumbar Nerve, Open Approach (ICD-10-PCS; principal; 2019-12-21)
DX: M48.062 Spinal stenosis, lumbar region with neurogenic claudication (principal); F32.9 Major depressive disorder, single episode, unspecified; G89.4 Chronic pain syndrome; F41.9 Anxiety disorder, unspecified; M19.90 Unspecified osteoarthritis, unspecified site; E07.9 Disorder of thyroid, unspecified; Z79.899 Other long term (current) drug therapy; Z98.84 Bariatric surgery status
CPT/HCPCS: 63047; 76000; J2270; J0690; J2405; J2704; J3010; S0020; S0028

== ENCOUNTER 2020-04-11 15:28 | Outpatient (CLI) | payer MEDICARE | END 2020-04-11 15:29 | disposition home or self-care (01) | LOC: RAD 15:28 | PROVIDERS: ATTEND Family Medicine | DX: M25.511 Pain in right shoulder (principal); M53.3 Sacrococcygeal disorders, not elsewhere classified; M47.816 Spondylosis without myelopathy or radiculopathy, lumbar region; M47.818 Spondylosis without myelopathy or radiculopathy, sacral and sacrococcygeal region; M85.88 Other specified disorders of bone density and structure, other site | CPT/HCPCS: 72220 ==

== ENCOUNTER 2020-10-21 12:01 | Outpatient (CLI) | payer MEDICARE | END 2020-10-21 12:02 | disposition home or self-care (01) | LOC: BICMAMMO 12:01 | PROVIDERS: ATTEND Physician Assistant | DX: Z12.31 Encounter for screening mammogram for malignant neoplasm of breast (principal); Z80.3 Family history of malignant neoplasm of breast | CPT/HCPCS: 77063; 77067 ==

== ENCOUNTER 2022-03-16 12:32 | Outpatient (CLI) | payer MEDICARE ==
[~2022-03-16 12:32] MED LIST: Magnevist 469MG/ML 20 ML VIAL ONE
== END 2022-03-16 12:33 | disposition home or self-care (01) ==
LOC: TBSIIMAG 12:32
PROVIDERS: ATTEND Neurological Surgery
DX: M50.01 Cervical disc disorder with myelopathy, high cervical region (principal); M47.26 Other spondylosis with radiculopathy, lumbar region; M51.16 Intervertebral disc disorders with radiculopathy, lumbar region; M50.33 Other cervical disc degeneration, cervicothoracic region; M48.02 Spinal stenosis, cervical region; M48.04 Spinal stenosis, thoracic region; M47.12 Other spondylosis with myelopathy, cervical region; M48.061 Spinal stenosis, lumbar region without neurogenic claudication; M47.817 Spondylosis without myelopathy or radiculopathy, lumbosacral region; M48.03 Spinal stenosis, cervicothoracic region; Z98.890 Other specified postprocedural states; Z98.1 Arthrodesis status
CPT/HCPCS: 72040; 72050; 72100; 72120; 72156; 72158; 82565; A9579

== ENCOUNTER 2022-05-04 09:19 | Outpatient (CLI) | payer MEDICARE ==
[2022-05-04 10:25] LABS: Hemoglobin 12.5 g/dL (12.0-15.5); Mean Corpuscular HGB CONC 33.2 g/dL (32.0-36.0); Mean Corpuscular Hemoglobin 30.3 pg (27.0-33.0); Mean Platelet Volume 9.5 fl (7.4-10.4); Platelet Count 228 10x3/uL (150-450); RBC Distribution Width 14.6 % (11.5-14.5); Red Blood Cell (RBC) Count 4.13 10x6/uL (3.90-5.03); White Blood Cell (WBC) Count 4.5 10x3/uL (3.5-10.5)
[2022-05-04 10:44] LABS: Anion Gap 14 mmol/L (10-20); BUN (Urea Nitrogen) 15 mg/dL (9.8-20.1); Calc. Creatinine Clearance 0 mL/min (70-130); Calcium 9.2 mg/dL (7.8-10.44); Carbon Dioxide 25 mmol/L (23-31); Chloride 108 mmol/L (98-107); Estimated GFR 57; Glucose 89 mg/dL (83-110); Potassium 4.6 mmol/L (3.5-5.1); Sodium 142 mmol/L (136-145)
== END 2022-05-04 09:20 | disposition home or self-care (01) ==
LOC: LABBT 09:19
PROVIDERS: ATTEND Neurological Surgery
DX: Z01.818 Encounter for other preprocedural examination (principal); M48.062 Spinal stenosis, lumbar region with neurogenic claudication; M51.26 Other intervertebral disc displacement, lumbar region
CPT/HCPCS: 80048; 85027; 93005; 93010

== ENCOUNTER 2022-05-07 05:47 | Observation (INO) | payer MEDICARE ==
[2022-05-06 11:57] VITALS: BMI 28.2
[2022-05-07] MEDS ORDERED: Bupivacaine HCl 0.5%/Epinephrine 1:200,000/PF 30 ml Vial ONE (06:23)
[2022-05-07] MEDS ORDERED: Thrombin 5000 UNITS/5 ML VIAL ONE (06:23)
[2022-05-07] MEDS ORDERED: fentaNYL PF 100 MCG/2 ML SYRINGE ONE (06:45)
[2022-05-07] MEDS ORDERED: CEFAZOLIN 2 GM VIAL ONE ×2 (06:46→12:14)
[2022-05-07] MEDS ORDERED: Ketamine 50 MG/ML (10ML VIAL) ONE (06:46)
[2022-05-07] MEDS ORDERED: Albumin 5% 500 ML ONE (06:46)
[2022-05-07] MEDS ORDERED: SUGAMMADEX SODIUM 200 MG/2 ML VIAL ONE (06:46)
[2022-05-07] MEDS ORDERED: Sodium Chloride 0.9% 100 ML ONE ×2 (06:46→12:14)
[2022-05-07] MEDS ORDERED: Rocuronium Bromide 10 MG/ML (10ML VIAL) ONE (06:55)
[2022-05-07] MEDS ORDERED: Dexamethasone 20 MG/5 ML VIAL ONE (06:55)
[2022-05-07] MEDS ORDERED: PROPOFOL 200 MG/20 ML VIAL ONE (06:55)
[2022-05-07] MEDS ORDERED: Lidocaine 1% PF 5 ML VIAL ONE (06:55)
[2022-05-07] MEDS ORDERED: ePHEDrine 50 MG/ML VIAL ONE (06:55)
[2022-05-07] MEDS ORDERED: Ondansetron PF 4 MG/2 ML Vial ONE (06:55)
[2022-05-07] MEDS ORDERED: Fentanyl 100 MCG/2 ML VIAL ONE ×2 (10:58→11:17)
[2022-05-07] MEDS ORDERED: HYDROcodone/Acetaminophen 5/325 mg Tablet ONE (12:11)
[2022-05-07 13:56] LABS: SARS-CoV-2 NAA Rapid Test Not Detected (NotDetected)
[2022-05-07] MEDS ORDERED: Morphine 2 MG/ML VIAL SLOW IVP PRN (14:39)
[2022-05-07] MEDS ORDERED: Bisacodyl 10 MG SUPP PR PRN (14:39)
[2022-05-07] MEDS ORDERED: diphenhydrAMINE 50 MG/ML VIAL IVP PRN (14:39)
[2022-05-07] MEDS ORDERED: Ondansetron PF 4 MG/2 ML Vial IVP PRN (14:39)
[2022-05-07] MEDS ORDERED: HYDROcodone/Acetaminophen 10/325 mg Tablet PO PRN (14:39)
[2022-05-07] MEDS ORDERED: Pregabalin 75 MG CAP PO SCH (16:00)
[2022-05-07] MEDS ORDERED: Famotidine 20 MG TAB PO PRN (16:14)
[2022-05-07] MEDS: Sodium Chloride 0.9% 1,000 ML IV SCH (16:55)
[2022-05-07] MEDS: HYDROcodone/Acetaminophen 10/325 mg Tablet PO PRN (17:18)
[2022-05-07] MEDS: CEFAZOLIN 2 GM in Sodium Chloride 0.9% 100 ML IVPB SCH (19:55)
[2022-05-07] MEDS: Pregabalin 75 MG CAP PO SCH (19:56)
[2022-05-08] MEDS: Levothyroxine Sodium 50 MCG TAB PO SCH (03:46)
[2022-05-08] MEDS: CEFAZOLIN 2 GM in Sodium Chloride 0.9% 100 ML IVPB SCH (03:46)
[2022-05-08] MEDS: HYDROcodone/Acetaminophen 10/325 mg Tablet PO PRN ×3 (03:47→20:58)
[2022-05-08] MEDS: Sodium Chloride 0.9% 1,000 ML IV SCH ×2 (05:57→16:09)
[2022-05-08] MEDS: Pregabalin 75 MG CAP PO SCH ×3 (09:14→20:58)
[2022-05-08] MEDS: FLUoxetine HCl 20 MG CAP PO SCH (09:15)
[2022-05-09] MEDS: Levothyroxine Sodium 50 MCG TAB PO SCH (05:44)
[2022-05-09] MEDS: FLUoxetine HCl 20 MG CAP PO SCH (07:38)
[2022-05-09] MEDS: Pregabalin 75 MG CAP PO SCH (07:38)
[2022-05-09] MEDS: HYDROcodone/Acetaminophen 10/325 mg Tablet PO PRN ×2 (07:38→12:25)
[2022-05-09] MEDS: Sodium Chloride 0.9% 1,000 ML IV SCH (07:41)
[2022-05-09 12:31] VITALS: BP 105/67; TEMP 98.7
== END 2022-05-09 13:15 | disposition home or self-care (01) ==
LOC: SDC 05:47 → SJJU 13:13
PROVIDERS: ADMIT Neurological Surgery; ATTEND Neurological Surgery
PROC: 0SG00AJ Fusion of Lumbar Vertebral Joint with Interbody Fusion Device, Posterior Approach, Anterior Column, Open Approach (ICD-10-PCS; principal; 2022-05-07)
DX: M51.36 Other intervertebral disc degeneration, lumbar region (principal); M51.26 Other intervertebral disc displacement, lumbar region; M48.061 Spinal stenosis, lumbar region without neurogenic claudication; M19.90 Unspecified osteoarthritis, unspecified site; E03.9 Hypothyroidism, unspecified; K21.9 Gastro-esophageal reflux disease without esophagitis; G89.4 Chronic pain syndrome; Z79.899 Other long term (current) drug therapy; Z98.1 Arthrodesis status; Z20.822 Contact with and (suspected) exposure to COVID-19
CPT/HCPCS: 20930; 20936; 22633; 22840; 22853; 96374; 96375; 96376; 97116; 97530; C1713 ×2; C1768; C1776; C1889; G0378 ×3; P9045; U0002; J1100; J2405; J2704; J3010; J3490; J7050

== ENCOUNTER 2022-05-11 11:55 | Inpatient (IN) | payer MEDICARE ==
[2022-05-11] MEDS ORDERED: Ondansetron PF 4 MG/2 ML Vial ONE (13:10)
[2022-05-11] MEDS ORDERED: Morphine 2 MG/ML VIAL ONE (13:10)
[2022-05-11 13:42] LABS: #Lymphocytes 0.8 thou/uL (1.20-3.40); #Monocytes 0.6 thou/uL (0.11-0.59); %Basophils 0.1 % (0.0-1.0); %Eosinophils 0.4 % (0.0-10.0); %Lymphocytes 11.9 % (21.0-51.0); %Monocytes 8.8 % (0.0-10.0); %Neutrophils 78.8 % (42.0-75.0); Hemoglobin 10.9 g/dL (12.0-16.0); Mean Corpuscular HGB CONC 33.6 g/dL (32.0-36.0); Mean Corpuscular Hemoglobin 31.9 pg (27.0-31.0); Mean Corpuscular Volume 94.8 fl (78.0-98.0); Mean Platelet Volume 7.4 fL (7.4-10.4); Platelet Count 226 10x3/uL (130-400); RBC Distribution Width 13.2 % (11.5-14.5); Red Blood Cell (RBC) Count 3.41 mill/uL (4.20-5.40); White Blood Cell (WBC) Count 6.3 10x3/uL (4.8-10.8)
[2022-05-11 14:03] LABS: ALT (SGPT) Less than 7 U/L (8-55); AST (SGOT) 23 U/L (5-34); Albumin 4.2 g/dL (3.4-4.8); Alkaline Phosphatase 72 U/L (40-110); Anion Gap 16 mmol/L (10-20); BUN (Urea Nitrogen) 10 mg/dL (9.8-20.1); Bilirubin, Total 1.6 mg/dL (0.2-1.2); Calc. Creatinine Clearance 0 mL/min (70-130); Calcium 9.5 mg/dL (7.8-10.44); Carbon Dioxide 24 mmol/L (23-31); Chloride 102 mmol/L (98-107); Estimated GFR 74; Globulin 3.6 g/dL (2.4-3.5); Glucose 115 mg/dL (83-110); Potassium 4.1 mmol/L (3.5-5.1); Protein, Total 7.8 g/dL (5.8-8.1); Sodium 138 mmol/L (136-145)
[2022-05-11] MEDS ORDERED: diphenhydrAMINE 50 MG/ML VIAL IVP PRN (17:24)
[2022-05-11] MEDS ORDERED: Morphine 2 MG/ML VIAL SLOW IVP PRN (17:24)
[2022-05-11] MEDS ORDERED: HYDROcodone/Acetaminophen 10/325 mg Tablet PO PRN (17:24)
[2022-05-11] MEDS ORDERED: Bisacodyl 10 MG SUPP PR PRN (17:24)
[2022-05-11] MEDS ORDERED: Acetaminophen 325 MG TAB PO PRN (17:30)
[2022-05-11] MEDS ORDERED: Ondansetron PF 4 MG/2 ML Vial IVP PRN (17:30)
[2022-05-11] MEDS ORDERED: Ondansetron ODT 4 MG TAB SL PRN (17:30)
[2022-05-11 17:59] VITALS: BMI 28.5
[2022-05-11] MEDS: Sodium Chloride 0.9% 1,000 ML IV SCH (18:09)
[2022-05-11] MEDS: Pregabalin 75 MG CAP PO SCH (20:40)
[2022-05-12] MEDS: HYDROcodone/Acetaminophen 10/325 mg Tablet PO PRN ×2 (00:05→12:08)
[2022-05-12] MEDS: Sodium Chloride 0.9% 1,000 ML IV SCH ×2 (06:43→20:27)
[2022-05-12] MEDS: Levothyroxine Sodium 25 MCG TAB PO SCH (08:51)
[2022-05-12] MEDS: FLUoxetine HCl 20 MG CAP PO SCH (08:51)
[2022-05-12] MEDS: Pregabalin 75 MG CAP PO SCH ×3 (08:51→20:27)
[2022-05-13 07:09] LABS: Anion Gap 12 mmol/L (10-20); BUN (Urea Nitrogen) 13 mg/dL (9.8-20.1); Calc. Creatinine Clearance 72 mL/min (70-130); Calcium 8.6 mg/dL (7.8-10.44); Carbon Dioxide 27 mmol/L (23-31); Chloride 106 mmol/L (98-107); Estimated GFR 78; Glucose 94 mg/dL (83-110); Potassium 3.5 mmol/L (3.5-5.1); Sodium 141 mmol/L (136-145)
[2022-05-13] MEDS: FLUoxetine HCl 20 MG CAP PO SCH (09:35)
[2022-05-13] MEDS: Levothyroxine Sodium 25 MCG TAB PO SCH (09:35)
[2022-05-13] MEDS: Pregabalin 75 MG CAP PO SCH ×3 (09:35→19:44)
[2022-05-13] MEDS: Sodium Chloride 0.9% 1,000 ML IV SCH ×2 (09:36→19:44)
[2022-05-13] MEDS: HYDROcodone/Acetaminophen 10/325 mg Tablet PO PRN ×2 (09:40→19:50)
[2022-05-14 07:06] LABS: Anion Gap 11 mmol/L (10-20); BUN (Urea Nitrogen) 10 mg/dL (9.8-20.1); Calc. Creatinine Clearance 72 mL/min (70-130); Calcium 8.7 mg/dL (7.8-10.44); Carbon Dioxide 28 mmol/L (23-31); Chloride 106 mmol/L (98-107); Estimated GFR 78; Glucose 90 mg/dL (83-110); Sodium 141 mmol/L (136-145)
[2022-05-14] MEDS: HYDROcodone/Acetaminophen 10/325 mg Tablet PO PRN ×3 (08:32→19:17)
[2022-05-14] MEDS: Pregabalin 75 MG CAP PO SCH ×3 (08:33→21:22)
[2022-05-14] MEDS: FLUoxetine HCl 20 MG CAP PO SCH (08:34)
[2022-05-14] MEDS: Levothyroxine Sodium 25 MCG TAB PO SCH (09:00)
[2022-05-14] MEDS: Sodium Chloride 0.9% 1,000 ML IV SCH (13:10)
[2022-05-15] MEDS: Sodium Chloride 0.9% 1,000 ML IV SCH ×2 (02:46→16:51)
[2022-05-15 08:27] LABS: Anion Gap 11 mmol/L (10-20); BUN (Urea Nitrogen) 10 mg/dL (9.8-20.1); Calc. Creatinine Clearance 72 mL/min (70-130); Calcium 8.6 mg/dL (7.8-10.44); Carbon Dioxide 27 mmol/L (23-31); Chloride 107 mmol/L (98-107); Estimated GFR 78; Glucose 91 mg/dL (83-110); Potassium 4.4 mmol/L (3.5-5.1); Sodium 141 mmol/L (136-145)
[2022-05-15] MEDS: Levothyroxine Sodium 25 MCG TAB PO SCH (09:29)
[2022-05-15] MEDS: Pregabalin 75 MG CAP PO SCH ×3 (09:29→20:18)
[2022-05-15] MEDS: FLUoxetine HCl 20 MG CAP PO SCH (09:30)
[2022-05-15] MEDS: HYDROcodone/Acetaminophen 10/325 mg Tablet PO PRN ×2 (09:31→20:19)
[2022-05-16] MEDS: Sodium Chloride 0.9% 1,000 ML IV SCH (04:27)
[2022-05-16 07:31] LABS: Anion Gap 12 mmol/L (10-20); BUN (Urea Nitrogen) 12 mg/dL (9.8-20.1); Calc. Creatinine Clearance 74 mL/min (70-130); Calcium 8.4 mg/dL (7.8-10.44); Carbon Dioxide 27 mmol/L (23-31); Chloride 106 mmol/L (98-107); Estimated GFR 81; Glucose 91 mg/dL (83-110); Potassium 3.7 mmol/L (3.5-5.1); Sodium 141 mmol/L (136-145)
[2022-05-16] MEDS: FLUoxetine HCl 20 MG CAP PO SCH (09:15)
[2022-05-16] MEDS: Pregabalin 75 MG CAP PO SCH ×3 (09:16→19:35)
[2022-05-16] MEDS: Levothyroxine Sodium 25 MCG TAB PO SCH (09:19)
[2022-05-16] MEDS: HYDROcodone/Acetaminophen 10/325 mg Tablet PO PRN (19:36)
[2022-05-17 07:07] LABS: Anion Gap 13 mmol/L (10-20); BUN (Urea Nitrogen) 15 mg/dL (9.8-20.1); Calc. Creatinine Clearance 69 mL/min (70-130); Calcium 8.9 mg/dL (7.8-10.44); Carbon Dioxide 26 mmol/L (23-31); Chloride 104 mmol/L (98-107); Estimated GFR 74; Glucose 89 mg/dL (83-110); Potassium 4.3 mmol/L (3.5-5.1); Sodium 139 mmol/L (136-145)
[2022-05-17] MEDS: Levothyroxine Sodium 25 MCG TAB PO SCH (08:53)
[2022-05-17] MEDS: FLUoxetine HCl 20 MG CAP PO SCH (08:53)
[2022-05-17] MEDS: HYDROcodone/Acetaminophen 10/325 mg Tablet PO PRN ×3 (08:53→20:24)
[2022-05-17] MEDS: Pregabalin 75 MG CAP PO SCH ×3 (08:54→20:23)
[2022-05-18] MEDS: Pregabalin 75 MG CAP PO SCH ×3 (08:11→20:01)
[2022-05-18] MEDS: FLUoxetine HCl 20 MG CAP PO SCH (08:11)
[2022-05-18] MEDS: Levothyroxine Sodium 25 MCG TAB PO SCH (08:11)
[2022-05-18] MEDS: HYDROcodone/Acetaminophen 10/325 mg Tablet PO PRN ×3 (08:14→20:10)
[2022-05-19] MEDS: HYDROcodone/Acetaminophen 10/325 mg Tablet PO PRN ×2 (04:00→09:07)
[2022-05-19 08:04] VITALS: BP 123/64; TEMP 98.3
[2022-05-19] MEDS: Levothyroxine Sodium 25 MCG TAB PO SCH (09:07)
[2022-05-19] MEDS: Pregabalin 75 MG CAP PO SCH (09:07)
[2022-05-19] MEDS: FLUoxetine HCl 20 MG CAP PO SCH (09:07)
== END 2022-05-19 13:28 | disposition home health service (06) | DRG 93 ==
LOC: ERS 11:55 → T4-A 16:15 → OBSVTOIN 05-13 15:24
PROVIDERS: ADMIT Neurological Surgery; ATTEND Neurological Surgery
DX: R20.2 Paresthesia of skin (principal); G89.18 Other acute postprocedural pain; E03.9 Hypothyroidism, unspecified; F32.A Depression, unspecified; M79.7 Fibromyalgia; I10 Essential (primary) hypertension; Z79.899 Other long term (current) drug therapy; Z79.890 Hormone replacement therapy; Z90.49 Acquired absence of other specified parts of digestive tract; Z98.1 Arthrodesis status; R53.81 Other malaise
CPT/HCPCS: 36415; 72131; 80048; 80053; 85025; 87811; 96374; 96375; J2272; J2405; J7050; U0003; U0005

== ENCOUNTER 2022-06-23 13:42 | Outpatient (CLI) | payer MEDICARE | END 2022-06-23 13:43 | disposition home or self-care (01) | LOC: BICRAD 13:42 | PROVIDERS: ATTEND Family Medicine | DX: M25.561 Pain in right knee (principal) ==

== ENCOUNTER 2022-07-16 12:22 | Emergency (ER) | payer MEDICARE ==
[2022-07-16] MEDS ORDERED: fentaNYL 50 mcg/mL 1 mL Vial ONE (12:58)
== END 2022-07-16 16:24 | disposition home or self-care (01) ==
LOC: ERS 12:22
DX: M25.562 Pain in left knee (principal); M25.561 Pain in right knee; M25.551 Pain in right hip; E03.9 Hypothyroidism, unspecified; W18.30XA Fall on same level, unspecified, initial encounter; Y92.090 Kitchen in other non-institutional residence as the place of occurrence of the external cause
CPT/HCPCS: 72170; 73080; 73502; 73564 ×2; 96372; 99283; J3010

== ENCOUNTER 2023-12-13 14:56 | Emergency (ER) | payer MEDICARE ==
[~2023-12-13 14:56] MED LIST changes: +Iopamidol-370 76% 500 ML MDV (1 ML CHARGE) ONE; -Magnevist 469MG/ML 20 ML VIAL ONE
[2023-12-13 16:06] LABS: #Basophils 0.05 10x3/uL (0.0-0.2); %Basophils 0.5 % (0.0-1.0); %Eosinophils 0.3 % (0.0-10.0); %Lymphocytes 9.8 % (21.0-51.0); %Monocytes 8.9 % (0.0-10.0); %Neutrophils 78.7 % (42.0-75.0); Hematocrit 27.1 % (36.0-47.0); Hemoglobin 9.2 g/dL (12.0-16.0); Mean Corpuscular HGB CONC 33.9 g/dL (32.0-36.0); Mean Corpuscular Hemoglobin 29.3 pg (27.0-31.0); Mean Corpuscular Volume 86.3 fL (78.0-98.0); Mean Platelet Volume 10.1 fL (7.4-10.4); Platelet Count 457 10x3/uL (130-400); RBC Distribution Width 22.4 % (11.5-14.5); Red Blood Cell (RBC) Count 3.14 mill/uL (4.20-5.40)
[2023-12-13 16:24] LABS: Troponin I Less than 0.010 ng/mL (< 0.028)
[2023-12-13 16:25] LABS: ALT (SGPT) 236 U/L (8-55); AST (SGOT) 413 U/L (5-34); Alkaline Phosphatase 1311 U/L (40-110); Anion Gap 13 mmol/L (10-20); BUN (Urea Nitrogen) 12 mg/dL (9.8-20.1); Bilirubin, Total 15.9 mg/dL (0.2-1.2); Calc. Creatinine Clearance 0 mL/min (70-130); Calcium 8.7 mg/dL (7.8-10.44); Carbon Dioxide 21 mmol/L (23-31); Chloride 104 mmol/L (98-107); Estimated GFR 84; Globulin 4.9 g/dL (2.4-3.5); Glucose 110 mg/dL (83-110); Lipase 191 U/L (8-78); Potassium 5.2 mmol/L (3.5-5.1); Protein, Total 6.9 g/dL (5.8-8.1); Sodium 133 mmol/L (136-145)
[2023-12-13 17:33] LABS: INR-International Normal Ratio 1.4; PTT 34.5 sec (22.9-36.1); Prothrombin Time 17.5 sec (12.0-14.7)
== END 2023-12-13 23:50 | disposition short-term general hospital (02) ==
LOC: ERS 14:56
DX: E80.6 Other disorders of bilirubin metabolism (principal)
CPT/HCPCS: 71045; 74177; 80053; 83605; 83690; 83880; 84484; 85025; 85610; 85730; 87040; 87086; Q9967; 36415

== ENCOUNTER 2024-03-02 09:40 | Outpatient (CLI) | payer MEDICARE ==
[2024-03-02] MEDS ORDERED: Iopamidol 370 76% 100 ML VIAL ONE (10:49)
== END 2024-03-02 09:41 | disposition home or self-care (01) ==
LOC: CT 09:40
PROVIDERS: ATTEND Surgery
DX: C25.9 Malignant neoplasm of pancreas, unspecified (principal); K68.3 Retroperitoneal hematoma; K86.89 Other specified diseases of pancreas
CPT/HCPCS: 36415; 74177; 82565; Q9967